=== PATIENT | male | born 1995 | race Asian ===

== ENCOUNTER 2018-01-29 04:28 | Inpatient (IN) | payer OTHER ==
[~2018-01-29] VITALS: Ht 170.2 cm; Wt 62.0 kg
[2018-01-29] MEDS ORDERED: DIPH,PERTUSS(ACELL),TET VAC/PF 0.5 ML IM-VACC ONE ×2 (05:07→05:30)
[2018-01-29] MEDS ORDERED: SODIUM CHLORIDE FLUSH 10ML SYR IVF ONE (05:30)
[2018-01-29] MEDS ORDERED: ONDANSETRON 2MG/ML, 2ML IVPush ONE (05:30)
[2018-01-29] MEDS ORDERED: LIDOCAINE-MPF 1%, 5ML ONE (05:41)
[2018-01-29 05:44] LABS: BASOPHILS # (AUTO) 0.04 x10^3/uL (0-0.1); BASOPHILS % (AUTO) 0 % (0-1); EOSINOPHILS # (AUTO) 0.04 x10^3/uL (0-0.4); EOSINOPHILS % (AUTO) 1 % (1-7); LYMPHOCYTES % (AUTO) 25 % (22-44); MD NO; MEAN CORPUSCULAR HEMOGLOBIN 30.6 pg (27.5-34.5); MEAN CORPUSCULAR HGB CONC 33.8 g/dL (33.2-36.2); MEAN CORPUSCULAR VOLUME 90.5 fL (81-97); MEAN PLATELET VOLUME 8.1 fL (7.4-10.4); MONOCYTES # (AUTO) 0.43 x10^3/uL (0.2-0.8); MONOCYTES % (AUTO) 5 % (2-9); NEUTROPHILS # (AUTO) 6.28 x10^3/uL (1.8-6.8); NEUTROPHILS % (AUTO) 69 % (42-75); PLATELET COUNT 206 x10^3/uL (130-400); RED BLOOD COUNT 5.05 x10^6/uL (4.38-5.82); RED CELL DISTRIBUTION WIDTH 13.8 % (9.4-14.8)
[2018-01-29] MEDS ORDERED: MORPHINE SULFATE 4 MG/ML, 1ML ONE (05:46)
[2018-01-29] MEDS ORDERED: ONDANSETRON 2MG/ML, 2ML ONE (05:46)
[2018-01-29 05:58] LABS: ALANINE AMINOTRANSFERASE 43 U/L (12-78); ALBUMIN 4.2 g/dL (3.4-5.0); ANION GAP 11 mmol/L (5-15); CALCIUM 8.3 mg/dL (8.5-10.1); CHLORIDE 109 mmol/L (98-107); CREATININE 1.09 mg/dL (0.7-1.3)
[2018-01-29 06:00] LABS: ALKALINE PHOSPHATASE 55 U/L (45-117); BILIRUBIN,TOTAL 0.5 mg/dL (0.2-1.0); TOTAL PROTEIN 7.3 g/dL (6.4-8.2)
[2018-01-29] MEDS ORDERED: MORPHINE SULFATE 4 MG/ML, 1ML IVPush PRN ×2 (06:00→08:00)
[2018-01-29] MEDS ORDERED: SODIUM CHLORIDE 0.9% 1,000ML IVBOLUS ONE ×2 (06:00→08:30)
[2018-01-29] MEDS ORDERED: LIDOCAINE-MPF 1%, 5ML INFIL ONE (06:00)
[2018-01-29] MEDS ORDERED: POTASSIUM CHLORIDE 40 MEQ in SODIUM CHLORIDE 0.9% 500 ML IV ONE (07:30)
[2018-01-29] MEDS ORDERED: POTASSIUM CHLORIDE 20 MEQ in SODIUM CHLORIDE 0.9% 1,000 ML IV ONE (07:49)
[2018-01-29] MEDS ORDERED: SODIUM CHLORIDE FLUSH 10ML SYR IVF PRN (08:00)
[2018-01-29] MEDS ORDERED: ONDANSETRON 2MG/ML, 2ML IVPush PRN ×2 (08:00→09:00)
[2018-01-29] MEDS ORDERED: LORazepam 2 MG/ML, 1ML IVPush PRN (09:00)
[2018-01-29] MEDS: AMPICILLIN/SULBACTAM 3 GM in SODIUM CHLORIDE 0.9% 100 ML IV SCH ×3 (09:19→21:12)
[2018-01-29 10:00] VITALS: BP 127/89
[2018-01-29] MEDS ORDERED: AMPICILLIN/SULBACTAM 3 GM in SODIUM CHLORIDE 0.9% 100 ML IV ONE (10:00)
[2018-01-29] MEDS: POTASSIUM CHLORIDE 20 MEQ, MAGNESIUM SULFATE 1 GM, THIAMINE 200 MG, FOLIC ACID 1 MG, MV... IV SCH (12:23)
[2018-01-29] MEDS: NS + 20MEQ KCL 1,000 ML IV SCH ×2 (12:23→22:44)
[2018-01-29 13:18] VITALS: BP 116/79
[2018-01-29 19:28] VITALS: BP 114/72
[2018-01-29] MEDS: morphine SULFATE 10 MG/ML, 1ML IVPush PRN (22:38)
[2018-01-30 01:14] VITALS: BP 120/69
[2018-01-30] MEDS: morphine SULFATE 10 MG/ML, 1ML IVPush PRN ×2 (02:14→23:20)
[2018-01-30] MEDS: AMPICILLIN/SULBACTAM 3 GM in SODIUM CHLORIDE 0.9% 100 ML IV SCH ×4 (02:18→20:34)
[2018-01-30 05:47] LABS: BASOPHILS # (AUTO) 0.03 x10^3/uL (0-0.1); BASOPHILS % (AUTO) 0 % (0-1); EOSINOPHILS # (AUTO) 0.15 x10^3/uL (0-0.4); EOSINOPHILS % (AUTO) 2 % (1-7); LYMPHOCYTES # (AUTO) 2.14 x10^3/uL (1-3.4); LYMPHOCYTES % (AUTO) 23 % (22-44); MD NO; MEAN CORPUSCULAR HEMOGLOBIN 30.1 pg (27.5-34.5); MEAN CORPUSCULAR HGB CONC 33.4 g/dL (33.2-36.2); MEAN CORPUSCULAR VOLUME 90.1 fL (81-97); MONOCYTES # (AUTO) 0.82 x10^3/uL (0.2-0.8); MONOCYTES % (AUTO) 9 % (2-9); NEUTROPHILS # (AUTO) 6.03 x10^3/uL (1.8-6.8); NEUTROPHILS % (AUTO) 66 % (42-75); PLATELET COUNT 186 x10^3/uL (130-400); RED BLOOD COUNT 4.58 x10^6/uL (4.38-5.82); RED CELL DISTRIBUTION WIDTH 14.1 % (9.4-14.8)
[2018-01-30 05:55] LABS: ALBUMIN 3.5 g/dL (3.4-5.0); ANION GAP 5 mmol/L (5-15); CALCIUM 8.3 mg/dL (8.5-10.1); CHLORIDE 110 mmol/L (98-107)
[2018-01-30 06:00] LABS: ALANINE AMINOTRANSFERASE 31 U/L (12-78); ALKALINE PHOSPHATASE 49 U/L (45-117); TOTAL PROTEIN 6.5 g/dL (6.4-8.2)
[2018-01-30 07:05] VITALS: BP 118/75
[2018-01-30] MEDS: NS + 20MEQ KCL 1,000 ML IV SCH ×2 (10:10→18:22)
[2018-01-30] MEDS: POTASSIUM CHLORIDE 20 MEQ, MAGNESIUM SULFATE 1 GM, THIAMINE 200 MG, FOLIC ACID 1 MG, MV... IV SCH (10:10)
[2018-01-30 20:30] VITALS: BP 121/68
[2018-01-31 01:55] VITALS: BP 116/74
[2018-01-31] MEDS: AMPICILLIN/SULBACTAM 3 GM in SODIUM CHLORIDE 0.9% 100 ML IV SCH ×4 (02:25→22:01)
[2018-01-31] MEDS: morphine SULFATE 10 MG/ML, 1ML IVPush PRN ×4 (02:25→22:02)
[2018-01-31] MEDS: NS + 20MEQ KCL 1,000 ML IV SCH ×2 (05:19→22:01)
[2018-01-31 06:04] LABS: ANION GAP 5 mmol/L (5-15); CALCIUM 8.8 mg/dL (8.5-10.1); CHLORIDE 108 mmol/L (98-107)
[2018-01-31 07:40] VITALS: BP 110/77
[2018-01-31] MEDS: POTASSIUM CHLORIDE 20 MEQ, MAGNESIUM SULFATE 1 GM, THIAMINE 200 MG, FOLIC ACID 1 MG, MV... IV SCH (11:32)
[2018-01-31 13:31] VITALS: BP 128/78
[2018-01-31 19:30] VITALS: BP 113/71
[2018-01-31] MEDS: NICOTINE 7 MG/24 HR PATCH.TD24 TD SCH (22:02)
[2018-02-01 02:15] VITALS: BP 115/68
[2018-02-01] MEDS: morphine SULFATE 10 MG/ML, 1ML IVPush PRN ×3 (02:16→21:17)
[2018-02-01] MEDS: AMPICILLIN/SULBACTAM 3 GM in SODIUM CHLORIDE 0.9% 100 ML IV SCH ×4 (05:47→22:15)
[2018-02-01 08:02] VITALS: BP 104/68
[2018-02-01] MEDS: NS + 20MEQ KCL 1,000 ML IV SCH (10:04)
[2018-02-01] MEDS: POTASSIUM CHLORIDE 20 MEQ, MAGNESIUM SULFATE 1 GM, THIAMINE 200 MG, FOLIC ACID 1 MG, MV... IV SCH (11:30)
[2018-02-01 14:22] VITALS: BP 126/72
[2018-02-01] MEDS ORDERED: BALANCED SALT OPHTH IRRIG SOLN 18ML ONE (16:05)
[2018-02-01] MEDS ORDERED: OXYMETAZOLINE NASAL SPRAY 0.05%, 15ML ONE (16:05)
[2018-02-01] MEDS ORDERED: LIDOCAINE 1%-EPI 1:100K, 30ML ONE (16:05)
[2018-02-01] MEDS ORDERED: FENTANYL PF 250 MCG/5ML ONE (16:16)
[2018-02-01] MEDS ORDERED: MIDAZOLAM 1 MG/ML, 2ML ONE (16:16)
[2018-02-01] MEDS ORDERED: ROCURONIUM 10 MG/ML,10ML ONE (16:20)
[2018-02-01] MEDS ORDERED: PROPOFOL 10 MG/ML, 20ML ONE (16:20)
[2018-02-01] MEDS ORDERED: SUCCINYLCHOLINE 20 MG/ML, 10ML ONE (16:20)
[2018-02-01] MEDS ORDERED: ONDANSETRON 2MG/ML, 2ML ONE ×2 (16:20)
[2018-02-01] MEDS ORDERED: DEXAMETHASONE 4 MG/ML, 5ML ONE (16:20)
[2018-02-01] MEDS ORDERED: LIDOCAINE 1%-EPI 1:100K, 30ML IM ONE (16:40)
[2018-02-01] MEDS ORDERED: ONDANSETRON ODT 8 MG PO PRN (18:00)
[2018-02-01] MEDS ORDERED: PROMETHAZINE 25 MG SUPP PR PRN (18:00)
[2018-02-01] MEDS ORDERED: ONDANSETRON 2MG/ML, 2ML IV PRN (18:00)
[2018-02-01] MEDS ORDERED: PROMETHAZINE 25 MG/ML, 1ML IV PRN (18:00)
[2018-02-01] MEDS ORDERED: MEPERIDINE/PF 25MG/0.5ML IVPush PRN (18:00)
[2018-02-01] MEDS ORDERED: ACETAMINOPHEN 325 MG TABLET PO PRN (18:00)
[2018-02-01] MEDS ORDERED: MUPIROCIN OINT 2%, 22GM ONE (20:02)
[2018-02-01] MEDS ORDERED: FENTANYL PF 100 MCG/2ML ONE (20:48)
[2018-02-01] MEDS ORDERED: MORPHINE SULFATE 4 MG/ML, 1ML ONE (20:49)
[2018-02-01] MEDS: MORPHINE SULFATE 4 MG/ML, 1ML IVPush PRN ×2 (20:53→21:17)
[2018-02-01] MEDS: FENTANYL PF 100 MCG/2ML IV PRN ×2 (20:58→21:07)
[2018-02-01] MEDS ORDERED: OXYcodone 5 MG/5 ML ORAL.SOL UDC ONE (21:09)
[2018-02-01] MEDS ORDERED: ACETAMINOPHEN 650 MG/20.3 ML UDC ONE (21:10)
[2018-02-01] MEDS ORDERED: OXYcodone 5 MG/5 ML ORAL.SOL UDC PO PRN (21:30)
[2018-02-01] MEDS ORDERED: MEPERIDINE/PF 50 MG/ML ONE (21:38)
[2018-02-01 21:58] VITALS: BP 148/69
[2018-02-01 21:59] VITALS: BP 143/93
[2018-02-01] MEDS: NICOTINE 7 MG/24 HR PATCH.TD24 TD SCH (22:17)
[2018-02-02] MEDS: morphine SULFATE 10 MG/ML, 1ML IVPush PRN ×6 (00:20→20:22)
[2018-02-02 00:44] VITALS: BP 122/82
[2018-02-02 04:14] VITALS: BP 132/80
[2018-02-02] MEDS: AMPICILLIN/SULBACTAM 3 GM in SODIUM CHLORIDE 0.9% 100 ML IV SCH ×4 (04:15→22:38)
[2018-02-02 05:20] LABS: ANION GAP 8 mmol/L (5-15); CALCIUM 8.4 mg/dL (8.5-10.1); CHLORIDE 102 mmol/L (98-107)
[2018-02-02 05:21] LABS: BASOPHILS # (AUTO) 0.01 x10^3/uL (0-0.1); BASOPHILS % (AUTO) 0 % (0-1); EOSINOPHILS % (AUTO) 0 % (1-7); LYMPHOCYTES % (AUTO) 7 % (22-44); MD NO; MEAN CORPUSCULAR HEMOGLOBIN 30.4 pg (27.5-34.5); MEAN CORPUSCULAR HGB CONC 33.8 g/dL (33.2-36.2); MONOCYTES # (AUTO) 0.66 x10^3/uL (0.2-0.8); MONOCYTES % (AUTO) 7 % (2-9); NEUTROPHILS # (AUTO) 8.17 x10^3/uL (1.8-6.8); NEUTROPHILS % (AUTO) 86 % (42-75); PLATELET COUNT 218 x10^3/uL (130-400); RED BLOOD COUNT 4.73 x10^6/uL (4.38-5.82); RED CELL DISTRIBUTION WIDTH 13.3 % (9.4-14.8)
[2018-02-02 05:22] LABS: CREATININE 1.05 mg/dL (0.7-1.3)
[2018-02-02] MEDS: NS + 20MEQ KCL 1,000 ML IV SCH ×2 (05:43→14:43)
[2018-02-02] MEDS: POTASSIUM CHLORIDE 20 MEQ, MAGNESIUM SULFATE 1 GM, THIAMINE 200 MG, FOLIC ACID 1 MG, MV... IV SCH (14:40)
[2018-02-02 16:18] VITALS: BP 122/76
[2018-02-02 20:56] VITALS: BP 106/68
[2018-02-02] MEDS: NICOTINE 7 MG/24 HR PATCH.TD24 TD SCH (23:59)
[2018-02-03] MEDS: morphine SULFATE 10 MG/ML, 1ML IVPush PRN ×3 (00:16→09:28)
[2018-02-03 00:59] VITALS: BP 104/62
[2018-02-03] MEDS: NS + 20MEQ KCL 1,000 ML IV SCH ×2 (02:13→12:23)
[2018-02-03] MEDS: AMPICILLIN/SULBACTAM 3 GM in SODIUM CHLORIDE 0.9% 100 ML IV SCH ×4 (04:12→21:44)
[2018-02-03 09:06] VITALS: BP 103/52
[2018-02-03 13:45] VITALS: BP 114/70
[2018-02-03] MEDS: ACETAMINOPHEN 325 MG TABLET PO PRN ×2 (16:48→21:44)
[2018-02-03 19:13] VITALS: BP 101/64
[2018-02-03] MEDS: NICOTINE 7 MG/24 HR PATCH.TD24 TD SCH (23:11)
[2018-02-04 00:36] VITALS: BP 114/65
[2018-02-04 00:38] VITALS: BP 140/87
[2018-02-04] MEDS: NS + 20MEQ KCL 1,000 ML IV SCH (00:42)
[2018-02-04 01:30] VITALS: BP 114/65
[2018-02-04] MEDS: AMPICILLIN/SULBACTAM 3 GM in SODIUM CHLORIDE 0.9% 100 ML IV SCH ×2 (04:08→10:19)
[2018-02-04 05:31] LABS: BASOPHILS # (AUTO) 0.01 x10^3/uL (0-0.1); BASOPHILS % (AUTO) 0 % (0-1); EOSINOPHILS # (AUTO) 0.22 x10^3/uL (0-0.4); EOSINOPHILS % (AUTO) 3 % (1-7); LYMPHOCYTES # (AUTO) 1.73 x10^3/uL (1-3.4); LYMPHOCYTES % (AUTO) 25 % (22-44); MD NO; MEAN CORPUSCULAR HEMOGLOBIN 30.9 pg (27.5-34.5); MEAN CORPUSCULAR VOLUME 90.8 fL (81-97); MEAN PLATELET VOLUME 7.9 fL (7.4-10.4); MONOCYTES # (AUTO) 0.61 x10^3/uL (0.2-0.8); MONOCYTES % (AUTO) 9 % (2-9); NEUTROPHILS # (AUTO) 4.32 x10^3/uL (1.8-6.8); NEUTROPHILS % (AUTO) 63 % (42-75); PLATELET COUNT 210 x10^3/uL (130-400); RED BLOOD COUNT 4.46 x10^6/uL (4.38-5.82); RED CELL DISTRIBUTION WIDTH 13.2 % (9.4-14.8)
[2018-02-04 05:41] LABS: ANION GAP 8 mmol/L (5-15); CHLORIDE 104 mmol/L (98-107); CREATININE 0.93 mg/dL (0.7-1.3)
[2018-02-04] MEDS: ACETAMINOPHEN 325 MG TABLET PO PRN ×2 (06:15→10:19)
[2018-02-04 07:22] VITALS: BP 113/78
[2018-02-04 13:20] VITALS: BP 122/84
== END 2018-02-04 14:38 | disposition home or self-care (01) | DRG 131 ==
LOC: ED 05:50 → EDIP 07:49 → 4NOR 09:39 → DCLOUNGE 02-04 14:26
PROVIDERS: ADMIT Internal Medicine; ATTEND Internal Medicine
PROC: 0HQ1XZZ Repair Face Skin, External Approach (ICD-10-PCS; 2018-01-29)
PROC: 0NSB04Z Reposition Nasal Bone with Internal Fixation Device, Open Approach (ICD-10-PCS; 2018-02-01)
PROC: 0NSP04Z Reposition Right Orbit with Internal Fixation Device, Open Approach (ICD-10-PCS; 2018-02-01)
PROC: 0NSQ04Z Reposition Left Orbit with Internal Fixation Device, Open Approach (ICD-10-PCS; 2018-02-01)
PROC: 0NSV04Z Reposition Left Mandible with Internal Fixation Device, Open Approach (ICD-10-PCS; 2018-02-01)
PROC: 0NSM04Z Reposition Right Zygomatic Bone with Internal Fixation Device, Open Approach (ICD-10-PCS; 2018-02-01)
PROC: 0NSN04Z Reposition Left Zygomatic Bone with Internal Fixation Device, Open Approach (ICD-10-PCS; 2018-02-01)
PROC: 0NSB04Z Reposition Nasal Bone with Internal Fixation Device, Open Approach (ICD-10-PCS; 2018-02-01)
PROC: 0NST04Z Reposition Right Mandible with Internal Fixation Device, Open Approach (ICD-10-PCS; 2018-02-01)
PROC: 0NSR04Z Reposition Maxilla with Internal Fixation Device, Open Approach (ICD-10-PCS; principal; 2018-02-01 14:30)
DX: S02.412A LeFort II fracture, initial encounter for closed fracture (principal); S02.31XA Fracture of orbital floor, right side, initial encounter for closed fracture; S02.32XA Fracture of orbital floor, left side, initial encounter for closed fracture; S02.2XXA Fracture of nasal bones, initial encounter for closed fracture; S02.40DA Maxillary fracture, left side, initial encounter for closed fracture; S02.40FA Zygomatic fracture, left side, initial encounter for closed fracture; S02.40CA Maxillary fracture, right side, initial encounter for closed fracture; S01.111A Laceration without foreign body of right eyelid and periocular area, initial encounter; E87.6 Hypokalemia; M26.4 Malocclusion, unspecified; F10.120 Alcohol abuse with intoxication, uncomplicated; Y90.4 Blood alcohol level of 80-99 mg/100 ml; F17.200 Nicotine dependence, unspecified, uncomplicated; R73.9 Hyperglycemia, unspecified; Y04.0XXA Assault by unarmed brawl or fight, initial encounter; Y93.89 Activity, other specified; Y92.59 Other trade areas as the place of occurrence of the external cause; Y99.8 Other external cause status; Z90.49 Acquired absence of other specified parts of digestive tract
CPT/HCPCS: 12011; 36415; 70450; 70486; 72125; 80048; 80053; 80307; 83735; 85025; 90471; 90715; 96365; 96375; 99285; C1713; G0378; J0295; J1100; J2175; J2250; J2405; J2704; J3010; J3411; J3475; J3480; J3490; J0330; J2270; J7030; J7040

== ENCOUNTER 2018-04-21 12:23 | Emergency (ER) | payer MEDICAID ==
[~2018-04-21] VITALS: Ht 162.6 cm; Wt 59.5 kg
[2018-04-21] MEDS ORDERED: ANTIBIOTICS (12:39)
[2018-04-21] MEDS ORDERED: OXYMETAZOLINE NASAL SPRAY 0.05%, 15ML ONE (14:19)
[2018-04-21 14:50] VITALS: BP 107/75
== END 2018-04-21 14:55 | disposition home or self-care (01) ==
LOC: ED 14:37
DX: R51 Headache (principal); F17.200 Nicotine dependence, unspecified, uncomplicated
CPT/HCPCS: 70486; 99284

== ENCOUNTER 2018-05-14 15:30 | Emergency (ER) | payer MEDICAID ==
[~2018-05-14] VITALS: Ht 167.6 cm; Wt 62.0 kg
[~2018-05-14 15:30] MED LIST: ANTIBIOTICS
[2018-05-14 15:40] VITALS: BP 110/62
== END 2018-05-14 16:52 | disposition home or self-care (01) ==
LOC: ED 16:35
DX: Z48.01 Encounter for change or removal of surgical wound dressing (principal)
CPT/HCPCS: 99281

== ENCOUNTER 2018-06-11 01:54 | Emergency (ER) | payer MEDICAID ==
[~2018-06-11] VITALS: Ht 167.6 cm; Wt 62.1 kg
[2018-06-11 01:57] VITALS: BP 116/82
--- NOTE | 2018-06-11 02:03 | NUR ---
Pt ambulated with steady gait from triage to room. Pt breathing E/U.
--- NOTE | 2018-06-11 02:10 | NUR ---
Provider to bedside for pt eval. Pt reports ichiness and rash since approx 0000, pt states he only thing different tonight was a glass of [employer]. Pt reports itchiness to both legs, upper and lower extremities. Raised red hives noted to these areas, noted scratching. Pt states his throat is a little scratchy but denies SOB or any dyspnea. 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 Pt denies any prior allergy. will monitor.
[2018-06-11] MEDS ORDERED: DIPHENHYDRAMINE 50 MG CAPSULE ONE (02:18)
--- NOTE | 2018-06-11 02:22 | NUR ---
Pt recieved benadryl per orders, see emar. pt states he just noticed the rash spread to his rips, hives also noted to upper arms. Pt continues to deny SOB or dyspnea. Pt reports he remembers this happening before when he was a child when he ate beans, pt denies having beans tonight. Pt states his parents gave him meds and it went away the next day. Pt resting in bed, breathing E/U. will monitor.
[2018-06-11] MEDS ORDERED: DIPHENHYDRAMINE 50 MG CAPSULE PO ONE (02:30)
--- NOTE | 2018-06-11 02:47 | NUR ---
Pt reports continues itching. denies SOB and dyspnea. will monitor.
--- NOTE | 2018-06-11 03:06 | NUR ---
Provider to bedside for pt update complete. pt to d/c.
--- NOTE | 2018-06-11 03:11 | NUR ---
rash to legs decreased in redness and raised hives, pt reports improved itching.
== END 2018-06-11 03:14 | disposition home or self-care (01) ==
LOC: ED 02:13
DX: L50.9 Urticaria, unspecified (principal); F17.200 Nicotine dependence, unspecified, uncomplicated; Z90.89 Acquired absence of other organs
CPT/HCPCS: 99282; 99283

== ENCOUNTER 2018-06-12 01:26 | Emergency (ER) | payer MEDICAID ==
[~2018-06-12] VITALS: Ht 170.2 cm; Wt 64.1 kg
[2018-06-12 01:28] VITALS: BP 106/61
--- NOTE | 2018-06-12 01:37 | NUR ---
ASSESSMENT MADE. CHART UP FOR ERP TO SEE.
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
[2018-06-12] MEDS ORDERED: DIPHENHYDRAMINE 50 MG CAPSULE ONE (01:51)
--- NOTE | 2018-06-12 01:53 | NUR ---
PROVIDED PT WITH [facility] WITH CARE [facility]ST INFORMATION FOR ASSISTANCE WITH PRESCRIPTION MEDICATION
[2018-06-12] MEDS ORDERED: DIPHENHYDRAMINE 25 MG CAPSULE PO ONE (02:00)
== END 2018-06-12 02:17 | disposition home or self-care (01) ==
LOC: ED 01:45
DX: L50.9 Urticaria, unspecified (principal)
CPT/HCPCS: 99283; J7512; Q0163

== ENCOUNTER 2018-06-14 02:43 | Emergency (ER) | payer MEDICAID ==
[~2018-06-14] VITALS: Ht 170.2 cm; Wt 64.0 kg
[2018-06-14 02:45] VITALS: BP 111/73
--- NOTE | 2018-06-14 02:51 | NUR ---
Pt ambulated to room from triage with steady gait.
--- NOTE | 2018-06-14 02:57 | NUR ---
provider to bedside for pt eval. Pt reports same rash he has been having and seen for but rash keeps coming and going. rash to arms and back, arms show signs of scratching. mild raised rash to arms, no visible raised rash noted to back.
--- NOTE | 2018-06-14 03:13 | NUR ---
Pt recieved meds per orders, see emar. Pt swallows without difficulty, denies SOB or dyspnea.
== END 2018-06-14 03:33 | disposition home or self-care (01) ==
LOC: ED 03:16
DX: L50.9 Urticaria, unspecified (principal); F17.200 Nicotine dependence, unspecified, uncomplicated
CPT/HCPCS: 99283; J7512; Q0177

== ENCOUNTER 2018-06-21 20:27 | Emergency (ER) | payer MEDICAID ==
[~2018-06-21] VITALS: Ht 167.6 cm; Wt 75.0 kg
[2018-06-21 20:32] VITALS: BP 129/82
--- NOTE | 2018-06-21 21:04 | NUR ---
CALLED FOR ROOM, NO ANSWER, STAFF STED WENT TO BATHROOM, WILL RECALL SOON
--- NOTE | 2018-06-21 21:24 | NUR ---
PT ROOMED, STATED TO TECH THAT HE WANTED TO LEAVE, ENCOURAGED TO STAY, PT REFUSED AND AMBULATED OUT WITH STEADY GAIT
== END 2018-06-21 21:26 | disposition left against medical advice (07) ==
LOC: ED 21:20
DX: F41.9 Anxiety disorder, unspecified (principal); Z53.21 Procedure and treatment not carried out due to patient leaving prior to being seen by health care provider

== ENCOUNTER 2018-10-03 05:23 | Day surgery (SDC) | payer BC, MEDICAID ==
[~2018-10-03] VITALS: Ht 170.2 cm; Wt 72.0 kg
[2018-10-03 06:15] VITALS: BP 108/75
[2018-10-03] MEDS ORDERED: OXYMETAZOLINE NASAL SPRAY 0.05%, 15ML ONE (06:49)
[2018-10-03] MEDS ORDERED: EPINEPHRINE 1 MG/ML, 1ML ONE (06:49)
[2018-10-03] MEDS ORDERED: LIDOCAINE 1%, 20ML ONE (06:49)
[2018-10-03] MEDS ORDERED: BALANCED SALT OPHTH IRRIG SOLN 18ML ONE (06:51)
[2018-10-03] MEDS ORDERED: MIDAZOLAM 1 MG/ML, 2ML ONE (07:17)
[2018-10-03] MEDS ORDERED: FENTANYL PF 250 MCG/5ML ONE (07:17)
[2018-10-03] MEDS ORDERED: PROPOFOL 10 MG/ML, 20ML ONE (08:26)
[2018-10-03] MEDS ORDERED: CEFAZOLIN 1,000 MG ONE (08:26)
[2018-10-03] MEDS ORDERED: ONDANSETRON 2MG/ML, 2ML ONE (08:26)
[2018-10-03] MEDS ORDERED: DEXAMETHASONE 4 MG/ML, 1ML ONE (08:26)
[2018-10-03] MEDS ORDERED: PROMETHAZINE 25 MG/ML, 1ML IV PRN (09:00)
[2018-10-03] MEDS ORDERED: FENTANYL PF 100 MCG/2ML IV PRN (09:00)
[2018-10-03] MEDS ORDERED: MEPERIDINE/PF 25MG/0.5ML IVPush PRN (09:00)
[2018-10-03] MEDS ORDERED: MIDAZOLAM 1 MG/ML, 2ML IV PRN (09:00)
[2018-10-03] MEDS ORDERED: ONDANSETRON 2MG/ML, 2ML IV PRN (09:00)
[2018-10-03] MEDS ORDERED: OXYcodone 5 MG/5 ML ORAL.SOL UDC PO PRN (09:00)
[2018-10-03] MEDS ORDERED: ACETAMINOPHEN 325 MG TABLET PO PRN (09:00)
[2018-10-03] MEDS ORDERED: ACETAMINOPHEN 650 MG/20.3 ML UDC ONE (09:05)
[2018-10-03] MEDS ORDERED: OXYcodone 5 MG/5 ML ORAL.SOL UDC ONE (09:06)
[2018-10-03] MEDS ORDERED: FENTANYL PF 100 MCG/2ML ONE (09:08)
[2018-10-03] MEDS ORDERED: ROCURONIUM 10MG/ML,5ML ONE (10:32)
[2018-10-03] MEDS ORDERED: KETOROLAC 30 MG/1 ML ONE (10:32)
[2018-10-03] MEDS ORDERED: SUCCINYLCHOLINE 20 MG/ML, 10ML ONE (10:32)
== END 2018-10-03 11:00 | disposition home or self-care (01) ==
LOC: OUT 05:23
PROVIDERS: ATTEND Otolaryngology Facial Plastic Surgery
DX: T85.898A Other specified complication of other internal prosthetic devices, implants and grafts, initial encounter (principal); Y83.8 Other surgical procedures as the cause of abnormal reaction of the patient, or of later complication, without mention of misadventure at the time of the procedure; Y92.89 Other specified places as the place of occurrence of the external cause
CPT/HCPCS: 20680; J0171; J0330; J0690; J1100; J1885; J2250; J2405; J2704; J3010

== ENCOUNTER 2019-12-19 14:35 | Emergency (ER) | payer BC, MEDICAID ==
[~2019-12-19] VITALS: Ht 170.2 cm; Wt 65.0 kg
[2019-12-19 14:45] VITALS: BP 139/98
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
== END 2019-12-19 15:09 | disposition left against medical advice (07) ==
LOC: ED 15:03
DX: F15.10 Other stimulant abuse, uncomplicated (principal); Z53.21 Procedure and treatment not carried out due to patient leaving prior to being seen by health care provider

== ENCOUNTER 2020-09-14 21:09 | Emergency (ER) | payer BC, MEDICAID ==
[~2020-09-14] VITALS: Ht 167.6 cm; Wt 71.7 kg
[2020-09-14 21:16] VITALS: BP 131/81
== END 2020-09-14 21:50 | disposition home or self-care (01) ==
LOC: ED 21:39
DX: L50.1 Idiopathic urticaria (principal); F17.210 Nicotine dependence, cigarettes, uncomplicated
CPT/HCPCS: 99281